=== PATIENT | female | born 1995 | race Caucasian/White ===

== ENCOUNTER 2020-02-06 06:15 | Emergency (ER) | payer OTHER ==
[~2020-02-06] VITALS: Ht 157.5 cm; Wt 45.0 kg
[2020-02-06] MEDS ORDERED: AMOXICILLIN500 MG PO (06:55)
[2020-02-06 07:14] VITALS: BP 114/62
== END 2020-02-06 07:15 | disposition home or self-care (01) ==
LOC: ED 06:15
DX: K02.9 Dental caries, unspecified (principal); Z33.1 Pregnant state, incidental